=== PATIENT | male | born 1955 | race Caucasian/White ===

== ENCOUNTER 2021-10-07 12:09 | Inpatient (IN) ==
[2021-10-07] MEDS ORDERED: SODIUM CHLORIDE 0.9% 1,000 ML IV STA (13:21)
[2021-10-07] MEDS ORDERED: ONDANSETRON 4 MG/2 ML VIAL IV STA (13:21)
[2021-10-07 13:42] LABS: Basophils % 0.3 % (0.0-0.8); Eosinophils # 0.3 10*3/uL (0.0-0.87); Eosinophils % 2.4 % (0.00-10.9); Hematocrit 48.9 VOL% (42.0-52.0); Hemoglobin 16.4 GM/DL (14.0-18.0); Immature Granulocytes % 0.4 %; Immature Granulocytes Absolute 0.04 #; Lymphocytes # 1.7 10*3/uL (1.4-4.0); Lymphocytes % 16.1 % (21.2-54.2); Mean Corpuscular HGB Conc 33.5 GM/DL (32-36); Mean Corpuscular Volume 86.7 FL (87-102); Mean Platelet Volume 9.9 FL (9.6-12.0); Monocytes % 5.3 % (1.7-12.7); Neutrophils % 75.5 % (38.7-73.9); Platelet Count 222 T/CUMM (130-400); Red Blood Count 5.64 MC/CUMM (3.8-5.5); Red Cell Distribution Width 12.5 % (9.3-17.3); White Blood Count 10.5 T/CUMM (4-12)
[2021-10-07 13:50] LABS: Albumin 3.8 G/DL (3.4-5.0); Bilirubin,Total 0.7 MG/DL (0.20-1.00); Calcium 11.1 MG/DL (8.5-10.1); Osmolality,Calculated 277.2 MOS/KG (273-304); Total Protein 7.9 G/DL (6.4-8.2)
[2021-10-07] MEDS ORDERED: GLUCAGON 1 MG VIAL IM PRN (15:34)
[2021-10-07] MEDS ORDERED: ONDANSETRON 4 MG/2 ML VIAL IV PRN (15:34)
[2021-10-07] MEDS ORDERED: MORPHINE 2 MG/1 ML SYRINGE IV PRN (15:34)
[2021-10-07] MEDS ORDERED: DEXTROSE 50% 25 GM/50 ML SYRINGE IV PRN (15:55)
[2021-10-07] MEDS ORDERED: ENOXAPARIN 40 MG/0.4 ML SYRINGE SUBCUT SCH (16:00)
[2021-10-07] MEDS: LACTATED RINGERS 1,000 ML IV SCH (16:35)
[2021-10-07] MEDS ORDERED: INSULIN LISPRO 100 UNIT/ML SUBCUT SCH (18:00)
[2021-10-08] MEDS: LACTATED RINGERS 1,000 ML IV SCH ×2 (01:11→21:11)
[2021-10-08 05:42] LABS: Basophils % 0.2 % (0.0-0.8); Eosinophils # 0.3 10*3/uL (0.0-0.87); Eosinophils % 4.2 % (0.00-10.9); Hematocrit 43.5 VOL% (42.0-52.0); Hemoglobin 14.3 GM/DL (14.0-18.0); Immature Granulocytes % 0.4 %; Immature Granulocytes Absolute 0.03 #; Lymphocytes # 2.5 10*3/uL (1.4-4.0); Lymphocytes % 31.1 % (21.2-54.2); Mean Corpuscular HGB Conc 32.9 GM/DL (32-36); Mean Platelet Volume 9.7 FL (9.6-12.0); Monocytes % 6.5 % (1.7-12.7); Neutrophils % 57.6 % (38.7-73.9); Platelet Count 196 T/CUMM (130-400); Red Cell Distribution Width 12.5 % (9.3-17.3); White Blood Count 8.1 T/CUMM (4-12)
[2021-10-08 06:32] LABS: Albumin 3.2 G/DL (3.4-5.0); Bilirubin,Total 0.7 MG/DL (0.20-1.00); Calcium 9.8 MG/DL (8.5-10.1); Potassium 3.5 MMOL/L (3.5-5.1); Total Protein 6.8 G/DL (6.4-8.2)
[2021-10-08] MEDS: INSULIN LISPRO 100 UNIT/ML SUBCUT SCH ×3 (07:11→18:11)
[2021-10-09] MEDS: INSULIN LISPRO 100 UNIT/ML SUBCUT SCH ×5 (00:19→20:59)
[2021-10-09] MEDS: LACTATED RINGERS 1,000 ML IV SCH ×6 (05:45→18:26)
[2021-10-09] MEDS ORDERED: propofoL 200 MG/20 ML VIAL IV ONE (13:48)
[2021-10-09] MEDS ORDERED: LIDOCAINE 2% 5 ML VIAL ONE (13:48)
[2021-10-10] MEDS: LACTATED RINGERS 1,000 ML IV SCH ×4 (01:10→18:45)
[2021-10-10 03:04] LABS: Basophils % 0.3 % (0.0-0.8); Eosinophils # 0.4 10*3/uL (0.0-0.87); Eosinophils % 5.9 % (0.00-10.9); Hematocrit 42.4 VOL% (42.0-52.0); Hemoglobin 14.2 GM/DL (14.0-18.0); Immature Granulocytes % 0.3 %; Immature Granulocytes Absolute 0.02 #; Lymphocytes # 1.7 10*3/uL (1.4-4.0); Lymphocytes % 25.1 % (21.2-54.2); Mean Corpuscular HGB Conc 33.5 GM/DL (32-36); Mean Corpuscular Volume 87.6 FL (87-102); Mean Platelet Volume 9.4 FL (9.6-12.0); Monocytes % 7.9 % (1.7-12.7); Neutrophils % 60.5 % (38.7-73.9); Platelet Count 167 T/CUMM (130-400); Red Blood Count 4.84 MC/CUMM (3.8-5.5); Red Cell Distribution Width 12.2 % (9.3-17.3); White Blood Count 6.7 T/CUMM (4-12)
[2021-10-10 03:19] LABS: Osmolality,Calculated 279.4 MOS/KG (273-304); Potassium 3.6 MMOL/L (3.5-5.1)
[2021-10-10 03:41] LABS: AFP Tumor 5.1 NG/ML (0-8); Cancer Antigen 19-9 21.07 U/ML (0-35); Carcinoembryonic Antigen 2.1 NG/ML (0.0-5.0)
[2021-10-10] MEDS: INSULIN LISPRO 100 UNIT/ML SUBCUT SCH ×4 (09:21→21:25)
[2021-10-11] MEDS: LACTATED RINGERS 1,000 ML IV SCH ×3 (02:14→13:38)
[2021-10-11 05:43] LABS: Basophils % 0.3 % (0.0-0.8); Eosinophils # 0.4 10*3/uL (0.0-0.87); Eosinophils % 6.3 % (0.00-10.9); Hematocrit 42.9 VOL% (42.0-52.0); Hemoglobin 14.3 GM/DL (14.0-18.0); Immature Granulocytes % 0.3 %; Immature Granulocytes Absolute 0.02 #; Lymphocytes # 1.9 10*3/uL (1.4-4.0); Lymphocytes % 28.4 % (21.2-54.2); Mean Corpuscular HGB Conc 33.3 GM/DL (32-36); Mean Corpuscular Volume 87.2 FL (87-102); Mean Platelet Volume 9.9 FL (9.6-12.0); Monocytes % 6.8 % (1.7-12.7); Neutrophils % 57.9 % (38.7-73.9); Platelet Count 167 T/CUMM (130-400); Red Blood Count 4.92 MC/CUMM (3.8-5.5); Red Cell Distribution Width 12.2 % (9.3-17.3); White Blood Count 6.7 T/CUMM (4-12)
[2021-10-11 06:05] LABS: Calcium 9.2 MG/DL (8.5-10.1); Osmolality,Calculated 272.7 MOS/KG (273-304); Potassium 3.5 MMOL/L (3.5-5.1)
[2021-10-11] MEDS: INSULIN LISPRO 100 UNIT/ML SUBCUT SCH ×2 (07:58→11:38)
[2021-10-11 13:29] VITALS: BP 158/71
[2021-10-11] MEDS ORDERED: INFLUENZA VIRUS VACCINE 0.5 ML SYRINGE IM ONE (13:56)
== END 2021-10-11 14:33 | disposition home or self-care (01) | DRG 392 ==
LOC: EDBD → EDUNIT# → N.ED 12:09 → SUATTDRO 15:34 → N.EDINP 15:34 → N.2E 21:44
PROVIDERS: ADMIT Internal Medicine; ATTEND Internal Medicine

== ENCOUNTER 2022-05-05 06:45 | Inpatient (IN) ==
[2022-04-29 11:41] LABS: Basophils % 0.5 % (0.0-0.8); Eosinophils # 0.3 10*3/uL (0.0-0.87); Eosinophils % 4.3 % (0.00-10.9); Hematocrit 46.3 VOL% (42.0-52.0); Hemoglobin 15.4 GM/DL (14.0-18.0); Immature Granulocytes % 0.4 %; Immature Granulocytes Absolute 0.03 #; Lymphocytes # 2.4 10*3/uL (1.4-4.0); Lymphocytes % 32.5 % (21.2-54.2); Mean Corpuscular HGB Conc 33.3 GM/DL (32-36); Mean Corpuscular Volume 86.7 FL (87-102); Mean Platelet Volume 9.8 FL (9.6-12.0); Monocytes # 0.5 10*3/uL (0.11-0.8); Monocytes % 6.6 % (1.7-12.7); Neutrophils % 55.7 % (38.7-73.9); Platelet Count 190 T/CUMM (130-400); Red Blood Count 5.34 MC/CUMM (3.8-5.5); Red Cell Distribution Width 12.6 % (9.3-17.3); White Blood Count 7.5 T/CUMM (4-12)
[2022-04-29 11:51] LABS: PT Patient Result 10.7 SECS (10.5-12.0)
[2022-04-29 12:00] LABS: Albumin 3.7 G/DL (3.4-5.0); Bilirubin,Total 0.5 MG/DL (0.20-1.00); Calcium 9.3 MG/DL (8.5-10.1); Osmolality,Calculated 278.7 MOS/KG (273-304); Potassium 4.5 MMOL/L (3.5-5.1); Total Protein 7.6 G/DL (6.4-8.2)
[~2022-05-05 06:45] MED LIST: ceFAZolin 2,000 MG/50 ML DUPLEX IV ONE
[2022-05-05] MEDS ORDERED: FAMOTIDINE 20 MG TABLET PO ONE (07:19)
[2022-05-05] MEDS ORDERED: DIAZEPAM 5 MG TABLET PO ONE (07:19)
[2022-05-05] MEDS ORDERED: LACTATED RINGERS 1,000 ML IV SCH (07:30)
[2022-05-05] MEDS ORDERED: ROCURONIUM 50 MG/5 ML VIAL IV ONE (08:25)
[2022-05-05] MEDS ORDERED: propofoL 200 MG/20 ML VIAL IV ONE (08:25)
[2022-05-05] MEDS ORDERED: SEVOFLURANE 1 UNIT/15 MINUTE INH ONE ×7 (08:25→10:35)
[2022-05-05] MEDS ORDERED: LIDOCAINE 2% 5 ML VIAL ONE (08:25)
[2022-05-05] MEDS ORDERED: fentaNYL 100 MCG/2 ML VIAL ONE (08:26)
[2022-05-05] MEDS ORDERED: MIDAZOLAM 2 MG/2 ML VIAL ONE (08:26)
[2022-05-05] MEDS ORDERED: HEPARIN/NACL 0.9% 2 UNITS/ML 1,000 UNIT/500 ML BAG IV ONE (08:31)
[2022-05-05] MEDS ORDERED: PHENYLEPHRINE DRIP 0 MG/0 ML PREMIX IV ONE (08:31)
[2022-05-05] MEDS ORDERED: LIDOCAINE 1% 5 ML VIAL ONE (08:38)
[2022-05-05] MEDS ORDERED: ROPIVACAINE 0.5% 30 ML VIAL ONE (08:38)
[2022-05-05] MEDS ORDERED: DEXAMETHASONE 4 MG/1 ML VIAL ONE ×3 (08:38→10:35)
[2022-05-05] MEDS ORDERED: LIDOCAINE 2% TOP JELLY 20 ML VIAL INTRAURETH ONE (09:42)
[2022-05-05] MEDS ORDERED: ONDANSETRON 4 MG/2 ML VIAL ONE (10:35)
[2022-05-05] MEDS ORDERED: KETOROLAC 30 MG/1 ML VIAL ONE (10:35)
[2022-05-05] MEDS ORDERED: ACETAMINOPHEN INJ 1,000 MG/100 ML VIAL IV ONE (10:35)
[2022-05-05] MEDS ORDERED: SUGAMMADEX 200 MG/2 ML VIAL IV ONE ×2 (10:50→11:40)
[2022-05-05] MEDS ORDERED: TISSUE ADHESIVE 1 EACH APPLICATOR TOP ONE (11:03)
[2022-05-05] MEDS ORDERED: HYDROmorphone 1 MG/1 ML SYRINGE IV PRN ×2 (11:19→12:36)
[2022-05-05] MEDS ORDERED: ONDANSETRON 4 MG/2 ML VIAL IV PRN (11:19)
[2022-05-05] MEDS ORDERED: GLUCAGON 1 MG VIAL IM PRN (11:19)
[2022-05-05] MEDS ORDERED: LINACLOTIDE 145 MCG CAPSULE PO PRN (11:24)
[2022-05-05] MEDS ORDERED: DEXTROSE 10% 250 ML BAG IV PRN (11:26)
[2022-05-05] MEDS: ONDANSETRON ODT 4 MG TABLET PO SCH ×2 (13:46→17:26)
[2022-05-05] MEDS: INSULIN REGULAR 100 UNIT/ML SUBCUT SCH ×3 (14:01→20:52)
[2022-05-05] MEDS: POTASSIUM CHLORIDE INJ 10 MEQ in SODIUM CHLORIDE 0.45% 1,000 ML IV SCH (14:29)
[2022-05-05] MEDS: amLODIPine 5 MG TABLET PO SCH (20:51)
[2022-05-05] MEDS: ASPIRIN EC 325 MG TABLET PO SCH (20:51)
[2022-05-05] MEDS ORDERED: PNEUMOCOCCAL VACCINE (13 VALENT) 0.5 ML SYRINGE IM ONE (21:00)
[2022-05-06] MEDS: POTASSIUM CHLORIDE INJ 10 MEQ in SODIUM CHLORIDE 0.45% 1,000 ML IV SCH ×2 (00:05→21:08)
[2022-05-06] MEDS: ONDANSETRON ODT 4 MG TABLET PO SCH ×4 (00:28→17:12)
[2022-05-06] MEDS: ENOXAPARIN 30 MG/0.3 ML SYRINGE SUBCUT SCH ×2 (06:24→16:30)
[2022-05-06] MEDS: INSULIN REGULAR 100 UNIT/ML SUBCUT SCH ×4 (08:32→21:04)
[2022-05-06] MEDS: ESCITALOPRAM 10 MG TABLET PO SCH (08:32)
[2022-05-06] MEDS: GLIMEPIRIDE 4 MG TABLET PO SCH (08:32)
[2022-05-06] MEDS: CYANOCOBALAMIN 500 MCG TABLET PO SCH (08:32)
[2022-05-06] MEDS: ASPIRIN EC 325 MG TABLET PO SCH (21:04)
[2022-05-06] MEDS: amLODIPine 5 MG TABLET PO SCH (21:04)
[2022-05-07] MEDS: ONDANSETRON ODT 4 MG TABLET PO SCH ×2 (01:05→05:59)
[2022-05-07] MEDS: ENOXAPARIN 30 MG/0.3 ML SYRINGE SUBCUT SCH (05:59)
[2022-05-07 07:58] VITALS: BP 124/64
[2022-05-07] MEDS: INSULIN REGULAR 100 UNIT/ML SUBCUT SCH (08:17)
[2022-05-07] MEDS: GLIMEPIRIDE 4 MG TABLET PO SCH (09:20)
[2022-05-07] MEDS: CYANOCOBALAMIN 500 MCG TABLET PO SCH (09:21)
[2022-05-07] MEDS: ESCITALOPRAM 10 MG TABLET PO SCH (09:21)
[2022-05-07] MEDS ORDERED: MAGNESIUM HYDROXIDE SUSP 30 ML UDCUP PO PRN (11:22)
== END 2022-05-07 11:45 | disposition home or self-care (01) | DRG 164 ==
LOC: N.OR 06:45 → N.SDSINP 06:47 → N.3E 13:13
PROVIDERS: ADMIT Surgery; ATTEND Surgery